=== PATIENT | male | born 1995 | race African-American/Black ===

== ENCOUNTER 2019-06-23 16:24 | Emergency (ER) | payer OTHER, SELFPAY | END 2019-06-23 17:16 | disposition home or self-care (01) | LOC: ERS 16:24 | DX: S16.1XXA Strain of muscle, fascia and tendon at neck level, initial encounter (principal); V89.2XXA Person injured in unspecified motor-vehicle accident, traffic, initial encounter | CPT/HCPCS: 99283 ==